=== PATIENT | male | born 1950 | race Caucasian/White ===

== ENCOUNTER 2025-03-02 13:55 | Emergency (ER) | payer OTHER, MEDICARE ==
[~2025-03-02] VITALS: Ht 175.3 cm; Wt 138.8 kg
[~2025-03-02 13:55] MED LIST: ATROPINE CARE5 ML OS; BACTRIM DS TAB1 EACH PO; BETIMOL5 M1 OD; BETIMOL5 M1 OS; CEPHALEXIN250 MG PO; CHLORTHALIDONE25 MG PO; FISH OIL 1,0001 EAC2 PO; GARLIC1 EAC1 PO; GLUCOSAMINE &1 EAC1 PO; HYDROCODON-ACE1 EA13 PO; KEFLEX500 MG PO; LOSARTAN POTASS25 MG PO; LUTEIN20 M1 PO; NAPROXEN500 MG PO; PREDNISOLONE ACE5 ML PO; PYRIDOXINE HCL50 MG PO; TERBINAFINE15 GM TOP; VIAGRA100 MG PO; VITAMIN D1000 UNI1 PO
[2025-03-02 14:09] LABS: BASOPHILS 0.8 % (0.2-1.2); HEMOGLOBIN 15.1 g/dL (13.7-17.5); LYMPHOCYTES 31.2 % (21.8-53.1); MCH 34.1 PG (25.7-32.2); MCHC 32.8 g/dL (32.3-36.5); MCV 103.8 fL (79.0-92.2); MONOCYTES 9.7 % (5.3-12.2); NEUTROPHILS 54.6 % (34.0-67.9); PLATELET COUNT 154 K/uL (163-337); RBC 4.43 M/uL (4.63-6.08)
[2025-03-02 14:26] LABS: ALBUMIN 3.2 g/dL (3.4-5.0); ALBUMIN/GLOBULIN RATIO 0.97 (1.1-2.4); ALCOHOL, MEDICAL <3 ng/dL (<3); ALKALINE PHOSPHATASE 67 U/L (46-116); ALT (SGPT) 23 U/L (14-59); ANION GAP 10.1 (7-21); AST (SGOT) 25 U/L (15-37); BILIRUBIN, TOTAL 0.7 mg/dL (0.2-1.0); BUN/CREATININE RATIO 11.19 (6.0-28.6); CALCIUM 9.4 mg/dL (8.5-10.1); CARBON DIOXIDE 31 mmol/L (21-32); CHLORIDE 101 mmol/L (98-107); CREATININE, SERUM 1.34 mg/dL (0.70-1.30); GLOMERULAR FILTRATION RATE,EST 55 mL/min (>60); POTASSIUM 4.1 mmol/L (3.5-5.1); PROTEIN, TOTAL 6.5 g/dL (6.4-8.2); UREA NITROGEN 15 mg/dL (7-18)
[2025-03-02] MEDS ORDERED: MORPHINE SULFATE 4 MG/ML VIAL IV PRN (14:45)
[2025-03-02] MEDS ORDERED: DIPHTH,PERTUSS(ACELL),TET VAC 0.5 ML SYRINGE IM ONE (16:30)
[2025-03-02] MEDS ORDERED: HYDROCODON-ACE1 EA10 PO (17:12)
[2025-03-02 17:35] VITALS: BP 135/75
--- NOTE | 2025-03-05 12:54 | EKG ---
[facility] [address] [place], [place] [address] Signed Accelerated Junctional rhythm Left axis deviation Low voltage QRS Inferior infarct , age undetermined Cannot rule out Anterior infarct , age undetermined Abnormal ECG No previous ECGs available Confirmed by Juwan Bryan MD ([id number]) on 03/05/2025 12:54:09 PM Electronically Signed By: JUWAN BRYAN MD 03/05/25 1254 PATIENT NAME: ARJUN CANSECO Electrocardiogram DATE OF : 46 PHYSICIAN: JUWAN BRYAN MD REPORT #: [id number] REPORT IS CONFIDENTIAL AND NOT TO BE RELEASED WITHOUT AUTHORIZATION
== END 2025-03-02 17:35 | disposition home or self-care (01) ==
LOC: ED 13:55
PROVIDERS: Emergency Medicine
DX: S12.490A Other displaced fracture of fifth cervical vertebra, initial encounter for closed fracture (principal); S12.401A Unspecified nondisplaced fracture of fifth cervical vertebra, initial encounter for closed fracture; S12.501A Unspecified nondisplaced fracture of sixth cervical vertebra, initial encounter for closed fracture; S01.01XA Laceration without foreign body of scalp, initial encounter; I10 Essential (primary) hypertension; Z79.899 Other long term (current) drug therapy; Z79.01 Long term (current) use of anticoagulants; Z86.711 Personal history of pulmonary embolism; W05.0XXA Fall from non-moving wheelchair, initial encounter
CPT/HCPCS: 12002; 36415; 70450; 71250; 72125; 80053; 83880; 85025; 90471; 90715; 93005; 93010; 99284-25; G0480; J2270

== ENCOUNTER 2025-03-05 17:04 | Emergency (ER) | payer OTHER, MEDICARE ==
[~2025-03-05] VITALS: Ht 175.3 cm; Wt 138.0 kg
[~2025-03-05 17:04] MED LIST changes: +HYDROCODON-ACE1 EA10 PO
--- OUTSIDE RECORDS SUMMARY | 2025-03-05 17:12 | XMS ---
PreManage Notification: ARJUN CANSECO Security List Of [employer] Events No recent Security Events currently on file CRITERIA MET - [facility] - 2 Visits in 30 Days CARE PROVIDERS -, Bharti- Dentist: Rattan Worker Current [facility] PHONE: [phone] -Rancho- Dentist: Rattan Worker Current [facility] PHONE: [phone] INGR[facility] WASSERMAN Internal Medicine Current PHONE: Unknown SILVA BUTTH [facility] Current PHONE: Unknown MARLYN PATEL Internal Medicine Current PHONE: [phone] Sandy has no Care Guidelines for this patient. [place] VISIT COUNT (12 MO.) [address] [facility] TOTAL 2 NOTE: Visits indicate total known visits. ED/UCC VISIT TRACKING (12 MO.) 03/05/2025 17:05 [facility] [place] TYPE: Emergency COMPLAINT: - URINARY PROBLEMS 03/02/2025 13:56 KATRINA [facility]ac[facility] TYPE: Emergency COMPLAINT: - FALL DIAGNOSES: - Cervicalgia - Essential (primary) hypertension - Fall from non-moving wheelchair, initial encounter - Laceration without foreign body of scalp, initial encounter - longterm (current) use of anticoagulants - Other displaced fracture of fifth cervical vertebra, initial encounter for closed fracture - Other [facility] (current) drug therapy - Personal history of pulmonary embolism - Unspecified nondisplaced fracture of fifth cervical vertebra, initial encounter for closed fracture - Unspecified nondisplaced fracture of sixth cervical vertebra, initial encounter for closed fracture INPATIENT VISIT TRACKING (12 MO.) No inpatient visits to display in this time frame [email or web address]
[2025-03-05] MEDS ORDERED: LIDOCAINE 2% VISCOUS 6 ML SYR TOP ONE (17:30)
[2025-03-05 18:28] LABS: BILIRUBIN, URINE NEGATIVE (negative); BLOOD/HGB, URINE NEGATIVE (Negative); KETONE, URINE NEGATIVE (Negative); LEUK ESTERASE, URINE SMALL (negative); NITRITE, URINE NEGATIVE (negative); PH, URINE 5.5 (5-7)
[2025-03-05 18:39] LABS: BACTERIA, URINE NONE SEEN /hpf (negative); CASTS, URINE NONE SEEN \\lpf; COLLECTION TYPE, URINE CLEAN CATCH; CRYSTALS, URINE NONE SEEN (0-1+); EPITHELIAL CELLS, URINE SQUAMOUS 1+ /lpf (0-1+); RED BLOOD CELLS, URINE 0-1 /hpf (0-5); REFLEX CULTURE, URINE Yes (No); WHITE BLOOD CELLS, URINE >50 /HPF (0-5)
[2025-03-05] MEDS ORDERED: MACROBID 100 M100 MG PO (18:54)
[2025-03-05] MEDS ORDERED: NITROFURANTOIN MONOHYD MACROCR 100 MG HOME.PACK PO ONE (19:00)
[2025-03-05 19:20] VITALS: BP 144/84
== END 2025-03-05 19:20 | disposition home or self-care (01) ==
LOC: ED 17:04
PROVIDERS: Family Medicine
DX: N39.0 Urinary tract infection, site not specified (principal); I10 Essential (primary) hypertension; Z46.6 Encounter for fitting and adjustment of urinary device; Z79.899 Other long term (current) drug therapy
CPT/HCPCS: 51702; 81001; 87077; 87088; 99283

== ENCOUNTER 2025-03-06 19:36 | Emergency (ER) | payer OTHER, MEDICARE ==
[~2025-03-06] VITALS: Ht 175.3 cm; Wt 133.5 kg
[~2025-03-06 19:36] MED LIST changes: +MACROBID 100 M100 MG PO
--- OUTSIDE RECORDS SUMMARY | 2025-03-06 19:43 | XMS ---
PreManage Notification: ARJUN CANSECO Security Journeyman Pipefitter Events No recent Security Events currently on file CRITERIA MET - [facility] - 2 Visits in 30 Days CARE PROVIDERS -, Bharti- Dentist: Certified Legal Investigator Current [facility] PHONE: [phone] -Rancho- Dentist: Certified Legal Investigator Current [facility] PHONE: [phone] INGRIS WASSERMAN Internal Medicine Current PHONE: Unknown SILVA BUTTH [facility] Current PHONE: Unknown MARLYN PATEL Internal Medicine Current PHONE: [phone] Sandy has no Care Guidelines for this patient. [place] VISIT COUNT (12 MO.) [address] [facility] TOTAL 3 NOTE: Visits indicate total known visits. ED/UCC VISIT TRACKING (12 MO.) 03/06/2025 19:37 [facility] [place] TYPE: Emergency COMPLAINT: - CATHETER ISSUE 03/05/2025 17:05 [facility] [place] TYPE: Emergency COMPLAINT: - URINARY PROBLEMS 03/02/2025 13:56 [facility] [place] TYPE: Emergency COMPLAINT: - FALL DIAGNOSES: - Cervicalgia - Essential (primary) hypertension - Fall from non-moving wheelchair, initial encounter - Laceration without foreign body of scalp, initial encounter - halfway (current) use of anticoagulants - Other displaced fracture of fifth cervical vertebra, initial encounter for closed fracture - Other jail (current) drug therapy - Personal history of pulmonary embolism - Unspecified nondisplaced fracture of fifth cervical vertebra, initial encounter for closed fracture - Unspecified nondisplaced fracture of sixth cervical vertebra, initial encounter for closed fracture INPATIENT VISIT TRACKING (12 MO.) No inpatient visits to display in this time frame [email or web address]
[2025-03-06] MEDS ORDERED: LIDOCAINE 2% VISCOUS 6 ML SYR TOP ONE (20:00)
[2025-03-06 20:57] VITALS: BP 149/82
== END 2025-03-06 20:50 | disposition home or self-care (01) ==
LOC: ED 19:36
DX: T83.021A Displacement of indwelling urethral catheter, initial encounter (principal); I10 Essential (primary) hypertension; Z79.899 Other long term (current) drug therapy
CPT/HCPCS: 51702; 99283-25